=== PATIENT | male | born 1995 | race Caucasian/White ===

== ENCOUNTER → 2023-08-04 | Outpatient (CLI) | payer MEDICAID, SELFPAY ==
[2023-08-04 12:45] LABS: NATERA MAILED SPECIMEN
== END | disposition home or self-care (01) ==
PROVIDERS: Referring Provider Nurse Practitioner Women's Health; Visit Provider Nurse Practitioner Women's Health
DX: Z31.440 Encounter of male for testing for genetic disease carrier status for procreative management (principal)